=== PATIENT | female | born 2000 | race Caucasian/White ===

== ENCOUNTER 2020-05-25 11:18 | Emergency (ER) | payer BC ==
[~2020-05-25] VITALS: Ht 165.1 cm; Wt 59.9 kg
[~2020-05-25 11:18] MED LIST: ACETAMINOPHEN-1 EAC1 PO; KEFLEX500 MG PO; NORCO 5-325 TA1 EAC1 PO; NORCO 5-325 TA1 EACH PO; TYLENOL325 MG PO
[2020-05-25] MEDS ORDERED: TRAMADOL 50 MG50 MG PO (11:36)
[2020-05-25] MEDS ORDERED: ULTRAM50 MG PO (12:05)
[2020-05-25 12:20] VITALS: BP 134/90
== END 2020-05-25 12:21 | disposition home or self-care (01) ==
LOC: M.ERS 11:18
DX: S93.491A Sprain of other ligament of right ankle, initial encounter (principal); M25.561 Pain in right knee; Z88.5 Allergy status to narcotic agent; W51.XXXA Accidental striking against or bumped into by another person, initial encounter; Y93.66 Activity, soccer; Y92.89 Other specified places as the place of occurrence of the external cause; Y99.8 Other external cause status

== ENCOUNTER 2020-07-05 13:42 | Emergency (ER) | payer BC ==
[~2020-07-05] VITALS: Ht 165.1 cm; Wt 59.0 kg
[~2020-07-05 13:42] MED LIST changes: +TRAMADOL 50 MG50 MG PO; +ULTRAM50 MG PO
[2020-07-05 14:04] LABS: URINE BILIRUBIN NEGATIVE (Negative); URINE BLOOD NEGATIVE (Negative); URINE CLARITY CLEAR; URINE COLOR YELLOW; URINE GLUCOSE-RANDOM NEGATIVE (Negative); URINE KETONES NEGATIVE (Negative); URINE LEUKOCYTES-REFLEX NEGATIVE (Negative); URINE NITRITE-REFLEX NEGATIVE (Negative); URINE PROTEIN 1+ (Negative); URINE SPECIFIC GRAVITY 1.025 (1.005-1.030); URINE UROBILINOGEN 0.2 E.U./dl (0.2-1.0)
[2020-07-05 14:16] LABS: AMP/METHAMP Negative (Negative); BARBITURATES Negative (Negative); BENZODIAZEPINES Negative (Negative); COCAINE Negative (Negative); METHADONE Negative (Negative); OPIATES Negative (Negative); PCP Negative (Negative); THC Negative (Negative)
[2020-07-05 14:23] LABS: HEMATOCRIT 30.2 % (37.0-47.0); HEMOGLOBIN 10.1 gm/dL (12.0-15.0); MCH 28.3 pg (26.0-34.0); MCHC 33.4 g/dL (28.0-37.0); MCV 84.8 fL (80.0-100.0); MPV 7.3 fl. (7.2-11.1); NUCLEATED RBCS 0 /100WBC; PLATELET COUNT* 405 thou/uL (150-400); RBC 3.57 mil/uL (4.20-5.00); RDW-CV 12.1 % (10.5-14.5); WBC 12.1 thou/uL (4.0-11.0)
[2020-07-05 14:35] LABS: CALCIUM 9.2 mg/dL (8.5-10.1); CREATININE 0.9 mg/dL (0.6-1.3)
[2020-07-05 14:40] LABS: ALBUMIN 3.6 g/dL (3.4-5.0); TOTAL BILIRUBIN 0.5 mg/dL (<0.1-1.0)
[2020-07-05 15:15] LABS: ABSOLUTE LYMPHOCYTES 1.1 thou/uL (0.8-5.3); ABSOLUTE MONOCYTES 0.2 thou/uL (0.0-1.2); ABSOLUTE NEUTROPHILS 10.8 thou/uL (1.6-8.1); PLATELET ESTIMATE INCREASED
[2020-07-05] MEDS ORDERED: MECLIZINE HCL25 M1 PO (16:11)
[2020-07-05] MEDS ORDERED: NORCO 5-325 TA1 EAC2 PO (16:11)
--- NOTE | 2020-07-05 16:24 | EKG ---
[place] [address] ELECTROCARDIOGRAM REPORT Name: JAZMYN WU Room: [facility]#: [id number] Admission: 07/05/20 Attend Phys: Discharge: Date of : 89 Date of Service: 07/05/20 1408 Report #: [id number] THIS REPORT FOR: //name// [facility] ED Test Date: 2020-07-05 Test Time: 14:08:20 Pat Name: JAZMYN WU Department: Room: Gender: Healthcare Account Manager: [facility] : 2000 Requested By: Blossom Dougherty Order Number: [id number] MD: Lior Turner Measurements Intervals [place] Rate: 89 P: 63 SC: 164 QRS: 42 QRSD: 94 T: 31 QT: 354 QTc: 431 Interpretive Statements Sinus rhythm Probable left atrial enlargement RSR' in V1 or V2, right VCD or RVH Baseline wander in lead(s) II,III,aVF No previous ECG available for comparison Electronically Signed On 07-05-2020 16:24:16 CDT by Lior Turner [email or web address] <ELECTRONICALLY SIGNED> By: Lior Turner MD, FACC 07/05/20 1624 1408 1408 Lior Turner MD, [facility] /EPI
[2020-07-05 16:29] VITALS: BP 124/75
== END 2020-07-05 16:29 | disposition home or self-care (01) ==
LOC: M.ERS 13:42
PROVIDERS: Physician Assistant
DX: N23 Unspecified renal colic (principal); R42 Dizziness and giddiness; R50.9 Fever, unspecified; Z88.6 Allergy status to analgesic agent

== ENCOUNTER 2020-10-14 14:03 | Emergency (ER) | payer BC ==
[~2020-10-14] VITALS: Ht 165.1 cm; Wt 59.0 kg
[~2020-10-14 14:03] MED LIST changes: +MECLIZINE HCL25 M1 PO; +NORCO 5-325 TA1 EAC2 PO
[2020-10-14] MEDS ORDERED: PREDNISONE 10 M10 M1 PO (15:37)
[2020-10-14] MEDS ORDERED: DIPHENHIST50 MG PO (15:37)
[2020-10-14 15:41] VITALS: BP 128/72
== END 2020-10-14 15:41 | disposition home or self-care (01) ==
LOC: M.ERS 14:03
DX: T78.40XA Allergy, unspecified, initial encounter (principal); Z88.5 Allergy status to narcotic agent; Y93.89 Activity, other specified

== ENCOUNTER 2021-03-12 18:39 | Emergency (ER) | payer BC ==
[~2021-03-12] VITALS: Ht 165.1 cm; Wt 59.0 kg
[~2021-03-12 18:39] MED LIST changes: +DIPHENHIST50 MG PO; +PREDNISONE 10 M10 M1 PO
[2021-03-12 19:17] LABS: URINE BILIRUBIN NEGATIVE (Negative); URINE BLOOD 1+ (Negative); URINE CLARITY CLEAR; URINE COLOR YELLOW; URINE GLUCOSE-RANDOM NEGATIVE (Negative); URINE KETONES NEGATIVE (Negative); URINE LEUKOCYTES-REFLEX 1+ (Negative); URINE NITRITE-REFLEX NEGATIVE (Negative); URINE PROTEIN 1+ (Negative); URINE SPECIFIC GRAVITY 1.015 (1.005-1.030); URINE UROBILINOGEN 0.2 E.U./dl (0.2-1.0)
[2021-03-12 19:28] LABS: BACTERIA-REFLEX 1-9 Few /HPF (None Seen); SQUAMOUS 4-10 Moderate /LPF (0-3); URINE RBC 0-2 Rare /HPF (0-2); URINE WBC-REFLEX 6-15 Few /HPF (0-5); WBC CLUMPS Few (None Seen)
[2021-03-12 19:29] LABS: CASTS None Seen /LPF (None Seen); CRYSTALS None Seen /LPF (None Seen)
[2021-03-12 19:42] LABS: ABSOLUTE BASOPHILS 0.1 thou/uL (0.0-0.2); ABSOLUTE EOSINOPHILS 0.1 thou/uL (0.0-0.7); ABSOLUTE LYMPHOCYTES 1.4 thou/uL (0.8-5.3); ABSOLUTE MONOCYTES 0.8 thou/uL (0.0-1.2); ABSOLUTE NEUTROPHILS 9.8 thou/uL (1.6-8.1); BASOPHILS 0.5 %; EOSINOPHILS 0.4 %; HEMATOCRIT 34.8 % (37.0-47.0); HEMOGLOBIN 12.1 gm/dL (12.0-15.0); LYMPHOCYTES 11.5 %; MCH 29.5 pg (26.0-34.0); MCHC 34.7 g/dL (28.0-37.0); MONOCYTES 6.9 %; MPV 8.1 fl. (7.2-11.1); NUCLEATED RBCS 0 /100WBC; PLATELET COUNT* 281 thou/uL (150-400); POLYS 80.7 %; RBC 4.09 mil/uL (4.20-5.00); RDW-CV 12.1 % (10.5-14.5); WBC 12.1 thou/uL (4.0-11.0)
[2021-03-12 19:57] LABS: ALBUMIN 3.9 g/dL (3.4-5.0); CALCIUM 8.7 mg/dL (8.5-10.1); CREATININE 0.8 mg/dL (0.6-1.3); POTASSIUM 3.5 mmol/L (3.5-5.1); TOTAL BILIRUBIN 0.6 mg/dL (<0.1-1.0); TOTAL PROTEIN 7.4 g/dL (6.4-8.2)
[2021-03-12] MEDS ORDERED: HYDROCODON-ACE1 EAC7 PO (21:11)
[2021-03-12] MEDS ORDERED: CEPHALEXIN500 MG PO (21:11)
[2021-03-12 21:30] VITALS: BP 138/87
[2021-03-13] MEDS ORDERED: HYDROCODON-ACE1 EAC7 PO (14:32)
== END 2021-03-12 21:30 | disposition home or self-care (01) ==
LOC: M.ERS 18:39
PROVIDERS: Emergency Medicine; Physician Assistant
DX: N39.0 Urinary tract infection, site not specified (principal); Z88.5 Allergy status to narcotic agent